=== PATIENT | male | born 1985 | race Caucasian/White ===

== ENCOUNTER → 2018-01-17 | Outpatient (CLI) | payer BC, OTHER | LOC: M SLEEP 20:00 | DX: G47.33 Obstructive sleep apnea (adult) (pediatric) (principal) | CPT/HCPCS: 95810 ==

== ENCOUNTER → 2018-02-21 | Outpatient (CLI) | payer BC ==
--- NOTE | 2018-02-26 12:14 | SLEEPCENT ---
DATE OF PROCEDURE: 02/21/2018 ORDERING PHYSICIAN: Shayla Carroll, copy to Dr. Loaiza. INTERPRETATION: Nocturnal polysomnography was performed for the titration of pressure therapy in this patient with obstructive sleep apnea syndrome. Apnea-hypopnea index of 8.9. For testing a [employer] [place] full-face mask of medium size was used, 4 cm of water pressure were applied to the circuits and the lights were extinguished. 7 hours and 26 minutes of data were reviewed. There were 396 minutes of sleep identified. Sleep latency was mildly prolonged at 19.5 minutes. Rapid eye movement (REM) latency was normal at 72 minutes. Sleep architecture was fairly good with four REM cycles. Overall sleep efficiency is 90.7%. The patient's electrocardiogram showed sinus rhythm with an average heart rate of 70 beats per minute. EEG showed fairly normal waveforms for awake and sleep. Respiratory events were fully palliated with CPAP at a pressure +7. Remaining measures of sleep physiology were reasonably normal. IMPRESSION: Obstructive sleep apnea syndrome (G47.33) RECOMMENDATIONS: Nightly use of pressure therapy 7 cm of water.
== END ==
LOC: M SLEEP 20:00
PROVIDERS: ATTEND Nurse Practitioner Family
DX: G47.33 Obstructive sleep apnea (adult) (pediatric) (principal)